=== PATIENT | male | born 1955 | race African-American/Black ===

== ENCOUNTER 2018-09-05 19:48 | Emergency (ER) | payer SELFPAY ==
[~2018-09-05] VITALS: Ht 188 cm; Wt 88.5 kg
[~2018-09-05 19:48] MED LIST: ATENOLOL25 MG ORAL
--- NOTE | 2018-09-05 19:51 | NUR ---
ED Nurse Note: BIBA from [place] for radiating substernal chest pain x40 min. 01/22. No relief with ASA or NTG. Pt is AO x 4times, VSS, on room air no distress. ERMD seen Pt at bedside.
--- NOTE | 2018-09-05 19:54 | Emergency Room Report ---
History of Present Illness General Chief Complaint: Chest Pain Source: Patient (RashawnGerald MORENO) Present Illness HPI Patient presents with complaints of midsternal chest pain Some associated shortness of breath Patient reports he takes medications for high blood pressure Denies any previous intervention with his heart Pain was 5 out of 10 heaviness There was very minimal change with aspirin and nitroglycerin given by paramedics Patient reports that he was walking when the pain started denies any other fall or trauma (Gerald Morocho DO) Allergies: Coded Allergies: No Known Allergies (Unverified , 09/05/18) Patient History Past Medical History: see triage record Pertinent Family History: none Reviewed Nursing Documentation: PMH: Agreed; PSxH: Agreed (Gerald Morocho DO) Nursing Documentation-PMH Past Medical History: No History, Except For Hx Cardiac Problems: Yes - Heart attack 8 months ago Hx Hypertension: Yes Hx Cerebrovascular Accident: Yes - No deficits (Gerald Morocho DO) Review of Systems All Other Systems: negative except mentioned in HPI (Gerald Morocho DO) Physical Exam Vital Signs Date Time Temp Pulse Resp B/P (MAP) Pulse Ox O2 Delivery O2 Flow Rate FiO2 09/05/18 19:39 98.4 92 18 164/110 97 Room Air Sp02 EP Interpretation: reviewed, normal General Appearance: well appearing, no apparent distress Head: normocephalic, atraumatic Eyes: bilateral eye PERRL, bilateral eye EOMI ENT: hearing grossly normal, normal pharynx, TMs + canals normal, uvula midline Neck: full range of motion, supple, no meningismus, no bony tend Respiratory: lungs clear, normal breath sounds, no rhonchi, no respiratory distress, no retraction, no accessory muscle use Cardiovascular #1: normal peripheral pulses, regular rate, rhythm, no gallop, no JVD, no murmur Gastrointestinal: normal bowel sounds, non tender, soft, no mass, no organomegaly, non-distended, no guarding, no hernia, no pulsatile mass, no rebound Genitourinary: no CVA tenderness Musculoskeletal: normal inspection Neurologic: oriented x3, responsive, field clerk III-XII nml as tested, motor strength/ tone normal, sensory intact Psychiatric: mood/affect normal Skin: normal color, no rash, warm/dry, palpation normal Lymphatic: normal inspection, no adenopathy (Gerald Morocho DO) Medical Decision Making Diagnostic Impression: Primary Impression: Chest pain Qualified Codes: R07.9 - Chest pain, unspecified Additional Impressions: Methamphetamine abuse Hypertension Qualified Codes: I10 - Essential (primary) hypertension Labs Test 09/05/18 20:00 09/05/18 20:25 Sodium Level 144 MMOL/L (136-145) Potassium Level 3.4 MMOL/L (3.5-5.1) Chloride Level 107 MMOL/L (98-107) Carbon Dioxide Level 25 MMOL/L (21-32) Anion Gap 12 mmol/L (5-15) Blood Urea Nitrogen 18 mg/dL (7-18) Creatinine 1.2 MG/DL (0.55-1.30) Estimat Glomerular Filtration Rate > 60 mL/min (>60) Glucose Level 109 MG/DL (74-106) Calcium Level 8.6 MG/DL (8.5-10.1) Total Bilirubin 0.4 MG/DL (0.2-1.0) Aspartate Amino Transf (AST/SGOT) 41 U/L (15-37) Alanine Aminotransferase (ALT/SGPT) 23 U/L (12-78) Alkaline Phosphatase 126 U/L (46-116) Total Creatine Kinase 1129 U/L (26-308) Creatine Kinase MB 3.2 NG/ML (0.0-3.6) Creatine Kinase MB Relative Index 0.2 Troponin I 0.021 ng/mL (0.000-0.056) Pro-B-Type Natriuretic Peptide 219 pg/mL (0-125) Total Protein 7.4 G/DL (6.4-8.2) Albumin 3.3 G/DL (3.4-5.0) Globulin 4.1 g/dL Albumin/Globulin Ratio 0.8 (1.0-2.7) White Blood Count 8.0 K/UL (4.8-10.8) Red Blood Count 4.55 M/UL (4.70-6.10) Hemoglobin 12.3 G/DL (14.2-18.0) Hematocrit 38.5 % (42.0-52.0) Mean Corpuscular Volume 85 FL (80-99) Mean Corpuscular Hemoglobin 27.2 PG (27.0-31.0) Mean Corpuscular Hemoglobin Concent 32.1 G/DL (32.0-36.0) Red Cell Distribution Width 14.0 % (11.6-14.8) Platelet Count 168 K/UL (150-450) Mean Platelet Volume 6.9 FL (6.5-10.1) Neutrophils (%) (Auto) 53.0 % (45.0-75.0) Lymphocytes (%) (Auto) 33.3 % (20.0-45.0) Monocytes (%) (Auto) 11.8 % (1.0-10.0) Eosinophils (%) (Auto) 0.7 % (0.0-3.0) Basophils (%) (Auto) 1.2 % (0.0-2.0) (Gerald Morocho DO) ER Course Patient signout to me. He presents with chest pain. No diaphoresis, shortness of breath or radiation. Patient was at another hospital recently for the same thing. 3 sets of troponin negative. His chest pain probably secondary to drug abuse. Urine drug screen positive for methamphetamine but patient denies using it for a long period time. Blood pressure improved. Patient noncompliant with medication. We'll discharge home with outpatient stress testing. (Canelo Rojas MD) Rhythm Strip Diag. Results EP Interpretation: yes Rate: 60 Rhythm: NSR, no PVC's, no ectopy (Gerald Morocho DO) Last Vital Signs Date Time Temp Pulse Resp B/P (MAP) Pulse Ox O2 Delivery O2 Flow Rate FiO2 09/05/18 19:39 98.4 92 18 164/110 97 Room Air Status: improved (Gerald Morocho DO) Status: improved (Canelo Rojas MD) Disposition: HOME, SELF-CARE Condition: Stable Scripts Aspirin* (ASPIR 81*) 81 Mg Tablet. 81 MG ORAL DAILY, #30 TAB Prov: Canelo Rojas MD 09/06/18 Amlodipine Besylate (Norvasc) 10 Mg Tablet 10 MG ORAL DAILY, #30 TAB Prov: Canelo Rojas MD 09/06/18 Patient Instructions: Nonspecific Chest Pain Additional Instructions: stop using drugs. Follow up with your Dr. within a week. return if symptom worsen. Gerald Morocho DO Sep 05, 2018 19:54 Canelo Rojas MD Sep 06, 2018 04:54
[2018-09-05 20:29] LABS: ANION GAP 12 mmol/L (5-15); BLOOD UREA NITROGEN 18 mg/dL (7-18); CALCIUM 8.6 MG/DL (8.5-10.1); CARBON DIOXIDE 25 MMOL/L (21-32); CHLORIDE 107 MMOL/L (98-107); CREATININE 1.2 MG/DL (0.55-1.30); POTASSIUM 3.4 MMOL/L (3.5-5.1); SODIUM 144 MMOL/L (136-145)
--- NOTE | 2018-09-05 20:30 | NUR ---
ED Nurse Note: Blood sample sent to lab.
[2018-09-05 20:32] VITALS: BP 178/103
[2018-09-05 20:35] LABS: BASOPHILS % (AUTO) 1.2 % (0.0-2.0); EOSINOPHILS % (AUTO) 0.7 % (0.0-3.0); HEMATOCRIT 38.5 % (42.0-52.0); HEMOGLOBIN 12.3 G/DL (14.2-18.0); LYMPHOCYTES % (AUTO) 33.3 % (20.0-45.0); MEAN CORPUSCULAR VOLUME 85 FL (80-99); MONOCYTES % (AUTO) 11.8 % (1.0-10.0); PLATELET COUNT 168 K/UL (150-450); RED BLOOD COUNT 4.55 M/UL (4.70-6.10)
[2018-09-05] MEDS ORDERED: UNOBMED (20:36)
[2018-09-05 20:44] LABS: ALANINE AMINOTRANSFERASE 23 U/L (12-78); ALBUMIN 3.3 G/DL (3.4-5.0); ALBUMIN/GLOBULIN RATIO 0.8 (1.0-2.7); ALKALINE PHOSPHATASE 126 U/L (46-116); ASPARTATE AMINO TRANSFERASE 41 U/L (15-37); BILIRUBIN,TOTAL 0.4 MG/DL (0.2-1.0); CKMB 3.2 NG/ML (0.0-3.6); CREATINE KINASE 1129 U/L (26-308)
--- NOTE | 2018-09-05 20:55 | NUR ---
ED Nurse Note: Urine sample sent to lab.
--- NOTE | 2018-09-05 21:18 | NUR ---
ED Nurse Note: Pt BP 180/100. Inform MONET.
[2018-09-05 21:19] VITALS: BP 180/100
--- NOTE | 2018-09-05 22:17 | NUR ---
Kasey narayan in EDM - 09/05/18 at 2221 by SUSANNE ED Nurse Note: Blood sample sent to lab.
--- NOTE | 2018-09-06 | NUR ---
ED Nurse Note: Blood sample sent to lab.
[2018-09-06 00:46] LABS: CKMB 1.4 NG/ML (0.0-3.6)
--- NOTE | 2018-09-06 04:08 | NUR ---
ED Nurse Note: Blood sample sent to lab. Provide snack food.
[2018-09-06 04:48] VITALS: BP 185/104
[2018-09-06] MEDS ORDERED: NORVASC10 MG ORAL (04:54)
[2018-09-06] MEDS ORDERED: ASPIR 8181 MG ORAL (04:54)
--- NOTE | 2018-09-06 04:54 | NUR ---
ED Nurse Note: Pt BP 185/104, notified ERMD. BP meds IVP as order. Will monitor BP 15 minutes again.
[2018-09-06 05:27] VITALS: BP 157/87
--- NOTE | 2018-09-06 05:27 | NUR ---
Homeless Discharge: Patient is being discharged from medical care. Awake, alert and oriented x3. After care instructions, including referral to community resources were given. Patient verbalized understanding of After care instructions; at this time patient does not request medications, equipment or placement. Patient signed patient consent in the medical record for patient destination upon discharge. All medical devices such as IV and ID band were removed. Patient ambulated out with all personal belongings with steady gait. Pt BP stable 157/87. Meds instruction provided, Pt understood.
[2018-09-06 05:29] VITALS: BP 157/87
--- NOTE | 2018-09-07 19:14 | Cardiology Report ---
APPROVED REPORT EKG Measurement Heart [id number] Normal sinus rhythm Nonspecific ST abnormality Prolonged QT Abnormal ECG
== END 2018-09-06 05:34 | disposition home or self-care (01) ==
LOC: EDBD 19:48 → EMR 19:53
DX: R07.9 Chest pain, unspecified (principal); I10 Essential (primary) hypertension; F15.10 Other stimulant abuse, uncomplicated; I25.2 Old myocardial infarction
CPT/HCPCS: 36415; 71045; 80053; 80307; 82550; 82553; 83880; 84484; 85025; 93005; 96361; 96374; 99284; J0360